=== PATIENT | male | born 1980 | race Caucasian/White ===

== ENCOUNTER 2016-05-29 05:32 | Emergency (ER) | payer MEDICARE, MEDICAID ==
[2016-05-29 05:57] VITALS: BP 107/76
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
== END 2016-05-29 06:32 | disposition home or self-care (01) ==
LOC: JP.ED 05:32
DX: K04.7 Periapical abscess without sinus (principal); K02.9 Dental caries, unspecified; I25.2 Old myocardial infarction; I25.10 Atherosclerotic heart disease of native coronary artery without angina pectoris; F41.9 Anxiety disorder, unspecified; F32.9 Major depressive disorder, single episode, unspecified; F17.210 Nicotine dependence, cigarettes, uncomplicated; Z98.890 Other specified postprocedural states; Z79.899 Other long term (current) drug therapy; Z88.2 Allergy status to sulfonamides; Z88.5 Allergy status to narcotic agent; Z91.040 Latex allergy status; Z91.030 Bee allergy status
CPT/HCPCS: 99283

== ENCOUNTER 2016-07-01 01:25 | Emergency (ER) | payer MEDICAID, MEDICARE ==
[2016-07-01] MEDS ORDERED: Sodium Chloride 0.9% 1,000 ML IV SCH ×2 (01:30→03:00)
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
[2016-07-01 08:00] VITALS: BP 133/88
== END 2016-07-01 13:06 | disposition home or self-care (01) ==
LOC: JP.ED 01:25
DX: T48.1X2A Poisoning by skeletal muscle relaxants [neuromuscular blocking agents], intentional self-harm, initial encounter (principal); M54.9 Dorsalgia, unspecified; G89.29 Other chronic pain; I25.2 Old myocardial infarction; I25.10 Atherosclerotic heart disease of native coronary artery without angina pectoris; F17.210 Nicotine dependence, cigarettes, uncomplicated; Z88.5 Allergy status to narcotic agent; Z88.2 Allergy status to sulfonamides; Z95.5 Presence of coronary angioplasty implant and graft; Z91.040 Latex allergy status; Z91.030 Bee allergy status
CPT/HCPCS: 36415; 80053; 80305; 81001; 85025; 93005; 96360; 99284; G0480; J7040; 93010

== ENCOUNTER 2016-07-28 15:19 | Emergency (ER) | payer MEDICARE ==
[2016-07-28 15:42] VITALS: BP 109/74
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
== END 2016-07-28 16:18 | disposition home or self-care (01) ==
LOC: JP.ED 15:19
DX: B37.0 Candidal stomatitis (principal); H54.7 Unspecified visual loss; K21.9 Gastro-esophageal reflux disease without esophagitis; F41.9 Anxiety disorder, unspecified; F31.9 Bipolar disorder, unspecified; G43.909 Migraine, unspecified, not intractable, without status migrainosus; F17.210 Nicotine dependence, cigarettes, uncomplicated; Z88.5 Allergy status to narcotic agent; Z88.2 Allergy status to sulfonamides; Z91.030 Bee allergy status; Z91.040 Latex allergy status; Z79.82 Long term (current) use of aspirin
CPT/HCPCS: 99283

== ENCOUNTER 2016-11-09 00:36 | Emergency (ER) | payer MEDICAID, MEDICARE ==
[2016-11-09 00:59] VITALS: BP 123/89
[2016-11-09] MEDS ORDERED: Ketorolac 60 MG/2 ML SDV IM ONE (01:18)
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
== END 2016-11-09 01:55 | disposition home or self-care (01) ==
LOC: JP.ED 00:36
DX: G43.909 Migraine, unspecified, not intractable, without status migrainosus (principal); I25.2 Old myocardial infarction; I25.10 Atherosclerotic heart disease of native coronary artery without angina pectoris; K21.9 Gastro-esophageal reflux disease without esophagitis; F17.210 Nicotine dependence, cigarettes, uncomplicated; Z86.2 Personal history of diseases of the blood and blood-forming organs and certain disorders involving the immune mechanism; Z91.030 Bee allergy status; Z88.2 Allergy status to sulfonamides; Z88.5 Allergy status to narcotic agent; Z91.040 Latex allergy status; Z79.82 Long term (current) use of aspirin
CPT/HCPCS: 96372; 99284; J1885

== ENCOUNTER 2016-11-30 02:19 | Emergency (ER) | payer MEDICARE ==
[2016-11-30 02:34] VITALS: BP 120/84
[2016-11-30] MEDS ORDERED: Amoxicillin 500 MG Cap PO ONE (02:43)
[2016-11-30] MEDS ORDERED: Ibuprofen 800 MG Tab PO ONE (02:44)
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
== END 2016-11-30 03:30 | disposition home or self-care (01) ==
LOC: JP.ED 02:19
DX: K04.7 Periapical abscess without sinus (principal); F17.210 Nicotine dependence, cigarettes, uncomplicated; Z79.899 Other long term (current) drug therapy; Z79.82 Long term (current) use of aspirin; Z88.5 Allergy status to narcotic agent; Z91.040 Latex allergy status; Z88.2 Allergy status to sulfonamides; Z91.030 Bee allergy status
CPT/HCPCS: 99283; A9270

== ENCOUNTER 2017-01-03 21:45 | Emergency (ER) | payer SELFPAY ==
[2017-01-03 21:59] VITALS: BP 139/90
[2017-01-03] MEDS ORDERED: Ketorolac 60 MG/2 ML SDV IM ONE (22:51)
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
== END 2017-01-03 23:05 | disposition home or self-care (01) ==
LOC: JP.ED 21:45
DX: K02.9 Dental caries, unspecified (principal); K04.7 Periapical abscess without sinus; F17.210 Nicotine dependence, cigarettes, uncomplicated; Z88.5 Allergy status to narcotic agent; Z88.2 Allergy status to sulfonamides; Z91.030 Bee allergy status; Z79.82 Long term (current) use of aspirin
CPT/HCPCS: 96372; 99283; J1885

== ENCOUNTER 2017-01-07 04:12 | Emergency (ER) | payer MEDICARE ==
[2017-01-07] MEDS ORDERED: Aspirin 81 MG Tab.Chew PO ONE (04:39)
[2017-01-07] MEDS ORDERED: Morphine 2 MG/ML Syringe IVPUSH PRN (04:39)
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
[2017-01-07] MEDS: Sodium Chloride 0.9% 10 ML Syringe FLUSH PRN ×2 (04:47→05:12)
[2017-01-07] MEDS: Nitroglycerin 0.4 MG Tab.SL SL PRN ×2 (04:49→04:56)
[2017-01-07 06:24] VITALS: BP 115/80
--- NOTE | 2017-01-07 09:15 | CR ---
Chest 2V FINDINGS: The heart and vascular structures are normal in appearance. No infiltrates or effusions are demonstrated. The skeletal structures are unremarkable. IMPRESSION: Negative exam.
== END 2017-01-07 06:00 | disposition home or self-care (01) ==
LOC: JP.ED 04:12
DX: R07.89 Other chest pain (principal); I25.10 Atherosclerotic heart disease of native coronary artery without angina pectoris; F17.210 Nicotine dependence, cigarettes, uncomplicated; Z79.82 Long term (current) use of aspirin; Z88.2 Allergy status to sulfonamides; Z88.5 Allergy status to narcotic agent; Z91.030 Bee allergy status
CPT/HCPCS: 36415; 71020; 80053; 82553; 83690; 84484; 85025; 86140; 93005; 93010; 96374; 99285; A9270; J2270; J7050; 99284

== ENCOUNTER 2017-04-24 17:27 | Emergency (ER) | payer MEDICARE ==
[2017-04-24 18:01] VITALS: BP 125/75
[2017-04-24] MEDS ORDERED: Ketorolac 60 MG/2 ML SDV IM ONE (18:08)
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
== END 2017-04-24 19:12 | disposition home or self-care (01) ==
LOC: JP.ED 17:27
DX: M54.5 Low back pain (principal); I25.2 Old myocardial infarction; F17.210 Nicotine dependence, cigarettes, uncomplicated; Z77.22 Contact with and (suspected) exposure to environmental tobacco smoke (acute) (chronic); Z91.040 Latex allergy status; Z88.5 Allergy status to narcotic agent; Z88.2 Allergy status to sulfonamides; Z91.030 Bee allergy status; Z79.82 Long term (current) use of aspirin
CPT/HCPCS: 36415; 80053; 85027; 96372; 99283; 99284; J1885

== ENCOUNTER 2017-05-04 13:36 | Emergency (ER) | payer MEDICARE ==
[2017-05-04 13:52] VITALS: BP 118/63
[2017-05-04] MEDS ORDERED: Cyclobenzaprine 10 MG Tab PO ONE (14:08)
[2017-05-04] MEDS ORDERED: Ketorolac 60 MG/2 ML SDV IM ONE (14:08)
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
== END 2017-05-04 15:58 | disposition home or self-care (01) ==
LOC: JP.ED 13:36
DX: S29.012A Strain of muscle and tendon of back wall of thorax, initial encounter (principal); F31.9 Bipolar disorder, unspecified; I25.10 Atherosclerotic heart disease of native coronary artery without angina pectoris; I25.2 Old myocardial infarction; K21.9 Gastro-esophageal reflux disease without esophagitis; F17.210 Nicotine dependence, cigarettes, uncomplicated; Z87.442 Personal history of urinary calculi; Z88.5 Allergy status to narcotic agent; Z91.040 Latex allergy status; Z79.82 Long term (current) use of aspirin; Z87.820 Personal history of traumatic brain injury; X50.0XXA Overexertion from strenuous movement or load, initial encounter
CPT/HCPCS: 96372; 99283; A9270; J1885

== ENCOUNTER 2017-08-14 09:55 | Emergency (ER) | payer MEDICARE ==
[2017-08-14 10:20] VITALS: BP 144/97
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
== END 2017-08-14 11:43 | disposition home or self-care (01) ==
LOC: JP.ED 09:55
DX: K03.81 Cracked tooth (principal); I25.2 Old myocardial infarction; K21.9 Gastro-esophageal reflux disease without esophagitis; F17.210 Nicotine dependence, cigarettes, uncomplicated; Z88.5 Allergy status to narcotic agent; Z91.040 Latex allergy status; Z88.2 Allergy status to sulfonamides; Z91.030 Bee allergy status; Z79.82 Long term (current) use of aspirin
CPT/HCPCS: 99283

== ENCOUNTER 2017-10-28 21:43 | Emergency (ER) | payer MEDICARE ==
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
[2017-10-28 22:19] VITALS: BP 129/84
== END 2017-10-28 22:19 | disposition home or self-care (01) ==
LOC: JP.ED 21:43
DX: R00.0 Tachycardia, unspecified (principal); R42 Dizziness and giddiness; T44.5X5A Adverse effect of predominantly beta-adrenoreceptor agonists, initial encounter; Z88.5 Allergy status to narcotic agent; Z91.040 Latex allergy status; Z88.2 Allergy status to sulfonamides; Z91.030 Bee allergy status
CPT/HCPCS: 99283

== ENCOUNTER 2018-03-31 22:42 | Emergency (ER) | payer MEDICARE ==
[2018-03-31 23:09] VITALS: BP 125/61
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
--- NOTE | 2018-04-01 00:06 | CRLCR ---
Indication: Injury with pain and swelling at the base of the middle finger Technique: Three views right hand Comparison: None Findings: Bones: Alignment is normal. No fractures or bone lesions. Joint spaces: Unremarkable. Soft tissues: Unremarkable. Impression: Negative. Dictated by Lucila Arteaga MD @ Apr 01 2018 12:04AM Signed by Dr. Lucila Arteaga @ Apr 01 2018 12:04AM
== END 2018-04-01 00:27 | disposition home or self-care (01) ==
LOC: JP.ED 22:42
DX: S60.221A Contusion of right hand, initial encounter (principal); I25.2 Old myocardial infarction; I25.10 Atherosclerotic heart disease of native coronary artery without angina pectoris; K21.9 Gastro-esophageal reflux disease without esophagitis; Z88.5 Allergy status to narcotic agent; Z91.040 Latex allergy status; Z79.82 Long term (current) use of aspirin; X58.XXXA Exposure to other specified factors, initial encounter
CPT/HCPCS: 73130-RT; 99283; 99284

== ENCOUNTER 2018-06-03 08:39 | Emergency (ER) | payer MEDICARE, MEDICAID ==
[2018-06-03 09:07] VITALS: BP 131/66
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
== END 2018-06-03 10:25 | disposition home or self-care (01) ==
LOC: JP.ED 08:39
DX: S40.011A Contusion of right shoulder, initial encounter (principal); S90.01XA Contusion of right ankle, initial encounter; F17.210 Nicotine dependence, cigarettes, uncomplicated; Z79.82 Long term (current) use of aspirin; Z91.030 Bee allergy status; Z88.5 Allergy status to narcotic agent; Z91.040 Latex allergy status; Z88.2 Allergy status to sulfonamides; V09.9XXA Pedestrian injured in unspecified transport accident, initial encounter
CPT/HCPCS: 73030-RT; 73610-RT; 99283; 99283-25

== ENCOUNTER 2019-01-23 07:10 | Emergency (ER) | payer MEDICARE, MEDICAID ==
[2019-01-23 07:27] VITALS: BP 129/76; PULSE 55
[2019-01-23] MEDS ORDERED: Ondansetron 4 MG Tab.DIS PO ONE (07:46)
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
== END 2019-01-23 07:55 | disposition home or self-care (01) ==
LOC: JP.ED 07:10
DX: R11.2 Nausea with vomiting, unspecified (principal); I25.10 Atherosclerotic heart disease of native coronary artery without angina pectoris; I25.2 Old myocardial infarction; F17.210 Nicotine dependence, cigarettes, uncomplicated; Z88.5 Allergy status to narcotic agent; Z88.2 Allergy status to sulfonamides; Z91.030 Bee allergy status; Z91.040 Latex allergy status; Z86.73 Personal history of transient ischemic attack (TIA), and cerebral infarction without residual deficits
CPT/HCPCS: 99283; A9270

== ENCOUNTER 2020-12-19 21:08 | Emergency (ER) | payer MEDICARE, MEDICAID ==
[2020-12-19 21:27] VITALS: PULSE 66
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
[2020-12-19 22:52] LABS: CORONAVIRUS COVID-19 NAA NEGATIVE (NEGATIVE)
--- NOTE | 2020-12-20 08:56 | CR ---
CHEST: 12/19/2020 at 10:09 PM CLINICAL HISTORY:Cough and dyspnea COMPARISON:2017 FINDINGS: The heart size, pulmonary vascularity and hilar structures are normal. There is minimal patchy density in the right infrahilar region. IMPRESSION: Minimal patchy density in the right infrahilar region. Small pneumonia is not excluded
== END 2020-12-19 23:16 | disposition home or self-care (01) ==
LOC: JP.ED 21:08
DX: J18.9 Pneumonia, unspecified organism (principal); I25.10 Atherosclerotic heart disease of native coronary artery without angina pectoris; I25.2 Old myocardial infarction; I45.6 Pre-excitation syndrome; Z88.5 Allergy status to narcotic agent; Z91.040 Latex allergy status; Z88.2 Allergy status to sulfonamides; Z91.030 Bee allergy status; Z86.73 Personal history of transient ischemic attack (TIA), and cerebral infarction without residual deficits; Z72.0 Tobacco use; Z20.822 Contact with and (suspected) exposure to COVID-19
CPT/HCPCS: 0241U; 36415; 71045; 80053; 83605; 83615; 84145; 84484; 85025; 85379; 86140; 93005; 99285

== ENCOUNTER 2021-03-18 16:37 | Emergency (ER) | payer MEDICARE, MEDICAID ==
[2021-03-18 17:46] VITALS: BP 108/64; PULSE 90
[2021-03-18 17:59] LABS: CORONAVIRUS COVID-19 NAA POSITIVE (NEGATIVE)
== END 2021-03-18 17:45 | disposition left against medical advice (07) ==
LOC: JP.ED 16:37
DX: U07.1 COVID-19 (principal); R00.0 Tachycardia, unspecified; I25.10 Atherosclerotic heart disease of native coronary artery without angina pectoris; I25.2 Old myocardial infarction; Z72.0 Tobacco use; Z88.5 Allergy status to narcotic agent; Z91.040 Latex allergy status; Z88.2 Allergy status to sulfonamides; Z91.030 Bee allergy status
CPT/HCPCS: 0241U; 36415; 80048; 80076; 82550; 84484; 85025; 85379; 86140; 93005; 93010; 99283; 99284

== ENCOUNTER 2024-07-15 06:27 | Day surgery (SDC) | payer MEDICARE, MEDICAID ==
[2024-07-15 06:58] LABS: HEMATOCRIT 45.1 % (38.4-49.7); HEMOGLOBIN 15.7 g/dL (12.9-16.9); MEAN CORPUSCULAR HEMOGLOBIN 29.8 pg (31.6-35.5); MEAN CORPUSCULAR HGB CONC 34.8 g/dL (31.6-35.5); MEAN CORPUSCULAR VOLUME 85.7 fL (81.4-99.0); RED BLOOD CELL COUNT 5.26 M/uL (4.14-5.76); WHITE BLOOD CELL COUNT,WBC 7.2 K/uL (3.2-11.0)
[2024-07-15] MEDS ORDERED: Succinylcholine 200 MG/10 ML MDV ONE (07:05)
[2024-07-15] MEDS ORDERED: Propofol 200 MG/20 ML SDV ONE (07:05)
[2024-07-15] MEDS ORDERED: Ondansetron 4 MG/2 ML SDV ONE (07:05)
[2024-07-15] MEDS ORDERED: Rocuronium 50 MG/5 ML Vial ONE (07:05)
[2024-07-15] MEDS ORDERED: Dexamethasone 4 MG/ML SDV ONE (07:05)
[2024-07-15] MEDS ORDERED: Neostigmine Methylsulfate 10 MG/10 ML MDV ONE (07:05)
[2024-07-15] MEDS ORDERED: Glycopyrrolate 0.2 MG/ML 5 ML MDV ONE (07:05)
[2024-07-15] MEDS ORDERED: fentaNYL 250 MCG/5 ML SDV ONE (07:06)
[2024-07-15] MEDS ORDERED: Bupivacaine 0.5% 30 ML SDV ONE ×2 (07:07→07:10)
[2024-07-15] MEDS ORDERED: Midazolam 1 MG/ML 2 ML SDV ONE (07:07)
[2024-07-15 07:15] LABS: EST CRCL DRUG DOSING (CG) 112.67 mL/min; POTASSIUM,K 3.5 mmol/L (3.6-5.2)
[2024-07-15 07:20] LABS: ANION GAP 11.5 mmol/L (5.0-14.0)
[2024-07-15] MEDS: Lactated Ringers 1,000 ML IV SCH (07:22)
[2024-07-15] MEDS: Nozin Nasal Sanitizer NASBOTH ONE (07:23)
[2024-07-15] MEDS: ceFAZolin 2 GM in Premix Bag 1 BAG IV ONE (07:49)
[2024-07-15] MEDS ORDERED: Lactated Ringers 1,000 ML ONE (09:03)
[2024-07-15] MEDS: Ondansetron 4 MG/2 ML SDV IVPUSH PRN (11:16)
[2024-07-15 11:57] VITALS: BP 130/86; PULSE 81
== END 2024-07-15 12:15 | disposition home or self-care (01) ==
LOC: JP.SDS 06:27
PROVIDERS: ATTEND Specialist
DX: S43.431A Superior glenoid labrum lesion of right shoulder, initial encounter (principal); M25.811 Other specified joint disorders, right shoulder; M19.011 Primary osteoarthritis, right shoulder; Z88.5 Allergy status to narcotic agent; Z88.2 Allergy status to sulfonamides; Z91.040 Latex allergy status; X58.XXXA Exposure to other specified factors, initial encounter
CPT/HCPCS: 29807; 29824; 29826; 36415; 80048; 85027; 93005; 93010; A9270; C1713; J0330; J0665; J0690; J1100; J1596; J2250; J2405; J2704; J2710; J3010; J7120; J3490